=== PATIENT | female | born 1950 | race Caucasian/White ===

== ENCOUNTER 2016-12-14 13:00 | Inpatient (IN) | payer MEDICARE, OTHER ==
[~2016-12-14] VITALS: Ht 165.1 cm; Wt 60.8 kg
--- NOTE | ~2016-12-14 | PN ---
Unit #: [id number] #: [id number] Patient: FAREED JHAVERI [id number] [facility] [address] [place] [address] [id number] I MR#: [id number] NAME: FAREED JHAVERI ROOM: P131 Age: 66 Sex: F Admission Date: 12/14/2016 : 1950 Attending Physician: Sebastian Little M.D. Admitting Physician: Sebastian Little M.D. Primary Care Physician: Valente Morris PROGRESS NOTES DATE 12/17/2016 DISCUSSION The patient remains seclusive to room but is pleasant and cooperative with her interactions with this physician. She agrees to sign into the hospital for voluntary treatment when seen today. She continues to insist that she wants "an apartment of her own." I have spoken with the patient today regarding the fact that she may qualify for placement in a personal alf or such facility. The patient, however, is having nothing of this, and continues to demand an apartment of her own. I have instructed the patient that it will not be possible for this facility to make such arrangements. Dictated by... Sebastian Little M.D. RUIZ/kari TD: 12/17/2016 14:00 JOB #: [id number] JOÃO PROGRESS NOTES Page 1 of 1 X Sebastian Little MD X PROGRESS NOTE
--- NOTE | ~2016-12-14 | DS ---
Unit #: [id number] #: [id number] Patient: FAREED JHAVERI [id number] [facility] [address] [place] [address] [id number] MR#: [id number] NAME: FAREED JHAVERI ROOM: [facility] Age: 66 Sex: F Admission Date: 12/14/2016 : 1950 Discharge Date: 12/18/2016 Attending Physician: Sebastian Little M.D. Primary Care Physician: Guido Madrid M.D. DISCHARGE SUMMARY REASON FOR ADMISSION The patient is a 25-year-old white female with a history of homelessness and chronic paranoid schizophrenia. She was admitted in a state of florid psychosis. HOSPITAL COURSE The patient was admitted to the [address] [place] [address] unit and placed on suicide precautions. She was restarted on Risperdal 4 mg at bedtime. The patient remained seclusive to room and seem to return to rather her psychiatric baseline as of 12/18/2016, she requested discharge on that date. Throughout her hospitalization, the patient demanded this facility arranged an apartment for her despite being repeatedly told that no such arrangements could be made by this facility. The patient was in fact offered assistance in finding a personal mcc rather such facility, but absolutely refused this insisting that she had "my own apartment ." FINAL DIAGNOSES Chronic paranoid schizophrenia. DISPOSITION ON DISCHARGE The patient is discharged on the following medications: Risperdal 4 mg at h.s. for psychosis. DISCHARGE INSTRUCTIONS No dietary or physical restrictions were placed upon the patient at the time of discharge. FOLLOWUP Followup will take place through the auspices of community mental health resources. PROGNOSIS The patient's prognosis is guarded. Dictated by... Sebastian Little M.D. RUIZ/kacy TD: 12/18/2016 15:12 JOB #: [id number] Unit #: [id number] #: [id number] Patient: FAREED JHAVERI DISCHARGE SUMMARY Page 1 of 1 X Sebastian Little MD X DISCHARGE SUMMARY
--- NOTE | ~2016-12-14 | PN ---
Unit #: [id number] #: [id number] Patient: FAREED JHAVERI [id number] [facility] [address] [place] [address] [id number] I MR#: [id number] NAME: FAREED JHAVERI ROOM: 31 Age: 66 Sex: F Admission Date: 12/14/2016 : 1950 Attending Physician: Sebastian Little M.D. Admitting Physician: Sebastian Little M.D. Primary Care Physician: Valente Morris PROGRESS NOTES DATE 12/16/2016 DISCUSSION The patient is abed sleeping soundly today and multiple attempts to arouse her are less unsuccessful. We continue aggressive pharmacotherapy. The patient remains seclusive to room. Dictated by... Sebsatian Little M.D. CB/rudy TD: 12/17/2016 00:06 JOB #: [id number] JOÃO PROGRESS NOTES Page 1 of 1 X Sebastian Little MD X PROGRESS NOTE
--- NOTE | ~2016-12-14 | PA ---
Unit #: [id number] #: [id number] Patient: FAREED JHAVERI [id number] [place] [address] [id number] MR#: [id number] NAME: FAREED JHAVERI ROOM: P131 Age: 66 Sex: F Admission Date: 12/14/2016 : 1950 Date of Assessment: 12/15/2016 Attending Physician: Sebastian Little M.D. Admitting Physician: Sebastian Little M.D. Primary Care Physician: Guido Madrid M.D. PSYCHIATRIC ASSESSMENT IDENTIFYING INFORMATION The patient is a 66-year-old white female admitted in a state of florid psychosis. INFORMANT(S) The patient and chart. RELIABILITY Poor CHIEF COMPLAINT None given HISTORY OF PRESENT ILLNESS The patient is a 66-year-old white female last admitted under the care of this physician in March and early April of 2016. The patient is homeless and carries a diagnosis of chronic paranoid schizophrenia. She has apparently been homeless for the past two years and is today demanding that she be given an apartment. She also harvests delusion that the federal government owes her three billion dollars with which she will be able to purchase a home. The patient also complains that she is "in court in [place]" because "the [employer] [place] supports me." The patient was last hospitalized as noted previously in March of last year adult protective services was involved in the case but as is generally the case that organization provided absolutely no help with the patient's social situation. She did show some improvement with initiation of Risperdal. Her compliance of this medication outside of the hospital however is doubtful. For more complete history of present illness please refer to previous dictated notes. PAST PSYCHIATRIC HISTORY Reviewed, no changes. PAST MEDICAL HISTORY Reviewed, no changes. MEDICATIONS 1. Risperdal 2. Gold Burgos powder. ALLERGIES Codeine. FAMILY HISTORY Unit #: [id number] #: [id number] Patient: FAREED JHAVERI Reviewed, no changes. SOCIAL HISTORY Reviewed, no changes. MENTAL STATUS EXAMINATION At this time reveals the patient to be a thin disheveled white female, appearing her stated age. She is in no apparent physical distress at the time of examination. She is awake, alert, and oriented in all spheres. Her mood is irritable. Her affect is labile. Speech is rambling and tangential. Formal testing of memory and cognition are not possible at this time given the patient's inability to comply. The patient is currently denying suicidal or homicidal ideation. She floridly psychotic as described previously. Judgment and insight appear are egregiously impaired. ASSETS AND LIABILITIES ASSETS: To be assessed. LIABILITIES: Lack of resources. ADMITTING DIAGNOSES 1. Chronic paranoid schizophrenia. 2. History of inframammary candidiasis. PSYCHIATRIC PLAN/TREATMENT GOALS The patient remains hospitalized for safety and stabilization. Risperdal will be reinitiated at the dose of 4 mg at bedtime. I will ask the patient's licensed clinical social worker to see her regarding disposition options though I have made it abundantly clear to the patient that arrangement of an apartment for her will not be possible through the auspices of this facility. ESTIMATED LENGTH OF STAY Ten days. Dictated by... Sebastian Little M.D. RUIZ/rudy TD: 12/16/2016 00:35 JOB #: [id number] PSYCHIATRIC ASSESSMENT Page 1 of 1 X Sebastian Little MD X PSYCHIATRIC ASSESSMENT
--- NOTE | ~2016-12-14 | CO ---
Unit #: [id number] #: [id number] Patient: FAREED JAHVERI [id number] [place] [address] [id number] MR#: [id number] NAME: FAREED JHAVERI ROOM: 31 Age: 66 Sex: F Admission Date: 12/14/2016 : 1950 Attending Physician: Sebastian Little M.D. Primary Care Physician: Guido Madrid M.D. Requesting Physician: Sebastian Little M.D. CONSULTATION REPORT REASON FOR CONSULTATION Patient rash SUBJECTIVE "I have had this rash for a while but I think it is from getting radiation but I also think it is from having lupus but nobody will tell me that." OBJECTIVE Vital signs within normal limits. Noted Maculopapular rash only to sun exposed areas of skin on chest and upper back. No vesicles, no pustules. ASSESSMENT Contact dermatitis possible fungal. PLAN Nystatin/triamcinolone topical 100,000 units with one gram of triamcinolone per gram apply to affected area twice daily. Dictated by... Solange Barajas/rudy TD: 12/16/2016 03:36 JOB #: [id number] CONSULTATION REPORT Page 1 of 1 X Brianne Hinton APR X CONSULTATION REPORT
--- NOTE | ~2016-12-14 | HP ---
Unit #: [id number] #: [id number] Patient: FAREED JHAVERI [id number] [place] [address] [id number] I MR#: [id number] NAME: FAREED JHAVERI ROOM: P131 Age: 66 Sex: F Admission Date: 12/14/2016 : 1950 Attending Physician: Sebastian Little M.D. Admitting Physician: Sebastian Little M.D. Primary Care Physician: Guido Madrid M.D. HISTORY AND PHYSICAL HISTORY OF PRESENT ILLNESS Patient states she is owed a lot of money from the [employer] government. She had a truth and lending fraud claim and they owe her 3 billion dollars and she will buy her own house. PAST MEDICAL HISTORY Patient cannot answer. PAST SURGICAL HISTORY Patient does not answer. ALLERGIES Codeine. SOCIAL HISTORY Not known. FAMILY HISTORY Noncontributory. REVIEW OF SYSTEMS CONSTITUTIONAL: No fever or chills. HEENT: Denies any sore throat, ear pain or runny nose. CARDIOVASCULAR: Denies chest pain, irregular heart rhythm or palpitations. CHEST: Denies shortness of breath or cough. No hemoptysis. GASTROINTESTINAL: Denies nausea, vomiting, diarrhea or chronic constipation. ENDOCRINE: Denies history of increased thirst or urination. No recent significant weight loss or gain. GENITOURINARY: Denies dysuria, frequency, or hematuria. SKIN: Denies any rashes. HEMATOLOGIC: Denies history of increased bleeding or bruising. MUSCULOSKELETAL: Denies any hot, swollen joints. No generalized muscle pain. NEUROLOGIC: Denies problems with vision or speech. No frequent, severe headaches. No numbness, tingling or weakness in any extremities. Denies loss of bladder or bowel control. CURRENT MEDICATIONS 1. Risperdal 4 mg p.o. q.h.s. 2. Gold Burgos medicated powder topically t.i.d. PHYSICAL EXAMINATION Unit #: [id number] #: [id number] Patient: FAREED JHAVERI GENERAL: Alert, oriented, in no acute distress. VITAL SIGNS: Temperature 98.1, blood pressure 124/85, heart rate 106, respirations 18. HEIGHT: Not available. WEIGHT: Not available. SKIN: Warm and dry without rash or lesion. HEENT: Normocephalic. TMs not viewed. Oral and nasal passages clear. Conjunctivae clear. PERRLA. EOMs intact. NECK: Supple without lymphadenopathy or thyromegaly. HEART: Regular rate and rhythm without murmur. LUNGS: Clear. ABDOMEN: Soft, nontender, without masses or hepatosplenomegaly. : Not done. EXTREMITIES: No evidence of cyanosis, clubbing or edema. Moves all without focal deficit. NEUROLOGICAL: Grossly within normal limits. Cranial Nerves: II: Visual head are intact. III, IV AND : Extraocular movements are intact. Pupils are equal, round and reactive to light. V: Facial sensation is grossly normal. VII: Facial movements and expression are normal. VIII: Auditory acuity grossly intact. IX, X: Uvula is midline. Phonation is normal. XI: Patient shrugs shoulders and turns head normally. XII: Tongue protrudes in the midline. Sensory and Motor Function: Sensory and motor sensation is grossly normal. Motor: moves all extremities well. Coordination: Gait is normal. Deep Tendon Reflexes: Intact. IMPRESSION Psychiatric admission. RECOMMENDATIONS PSYCHIATRIC: Per psychiatrist. MEDICAL: No contraindication to participate in facility's activities. MEDICAL PROGNOSIS Good. Dictated by... Solange Barajas/quan TD: 12/14/2016 20:34 JOB #: [id number] Unit #: [id number] #: [id number] Patient: FAREED JHAVERI HISTORY AND PHYSICAL Page 1 of 1 X Brianne Hinton APR X HISTORY AND PHYSICAL
[~2016-12-14 13:00] MED LIST: RISPERIDONE PO
[2016-12-15 12:11] LABS: BASOPHIL% 0.7 % (0-2.5); EOSINOPHIL# 0.1 X10e3 (0-0.7); EOSINOPHIL% 1.5 % (0.0-7.0); HEMOGLOBIN 15.8 gm/dL (12.0-16.0); LYMPHOCYTE# 1.4 X10e3 (1.0-3.5); LYMPHOCYTE% 29.3 % (17.0-45.0); MEAN CELL VOLUME 97.3 FL (83-96); MEAN CORPUSCULAR HGB CONC 32.9 g/dL (30-36); MEAN PLATELET VOLUME 10.2 FL (6.5-11.5); MONOCYTE# 0.6 X10e3 (0-1.0); MONOCYTE% 12.4 % (3.0-12.0); NEUTROPHIL# 2.7 X10e3 (1.5-7.1); NEUTROPHIL% 56.1 % (40-75); RED BLOOD COUNT 4.93 X10e (3.90-5.30); RED CELL DISTRIBUTION WIDTH 14.6 % (11.0-15.5); WHITE BLOOD COUNT 4.9 X10e3 (4.0-10.5)
[2016-12-15 12:30] LABS: ALBUMIN SERUM 3.8 g/dL (3.5-5.0); BILIRUBIN,TOTAL 0.6 mg/dL (0.2-2.0); CALCIUM SERUM 9.4 mg/dL (8.4-10.2); CREATININE SERUM 0.5 mg/dL (0.6-1.4); GLOM FILT RATE Estimated 100.2 mL/min (>60); POTASSIUM 4.4 mmol/L (3.5-5.1); PROTEIN TOTAL SERUM 6.6 g/dL (6.0-8.3)
[2016-12-15 12:46] LABS: DIFF IND NO; PLATELET COUNT 189 X10e3 (140-420)
== END 2016-12-18 18:08 | disposition home or self-care (01) | DRG 885 ==
LOC: P1S 14:15
PROVIDERS: Specialist
DX: F20.0 Paranoid schizophrenia (principal); B36.9 Superficial mycosis, unspecified; Z88.5 Allergy status to narcotic agent
CPT/HCPCS: 80053; 85025